=== PATIENT | female | born 1995 | race Caucasian/White ===

== ENCOUNTER 2019-07-14 08:57 | Inpatient (IN) ==
[2019-07-14] MEDS ORDERED: ANCEF VIAL 1 GRAM IVP ONE (09:29)
[2019-07-14] MEDS ORDERED: LR 1000 ML IV 1,000 ML IV ONE ×3 (09:31→11:13)
[2019-07-14] MEDS ORDERED: ANCEF 1 GRAM IV PREMIX* 2 G/100 ML BAG IV ONE (09:32)
[2019-07-14 09:59] LABS: BASOPHILS % (AUTO) 0.3 % (0.2-1.0); EOSINOPHILS % (AUTO) 0.5 % (0.9-2.9); HEMATOCRIT 35.7 % (36.0-47.0); HEMOGLOBIN 12.8 g/dL (12.0-16.0); LYMPHOCYTES # (AUTO) 1.8 X10^3/uL (1.3-2.9); LYMPHOCYTES % (AUTO) 19.1 % (21.0-51.0); MEAN CORPUSCULAR HEMOGLOBIN 32.3 pg (27.0-34.0); MEAN CORPUSCULAR HGB CONC 35.7 g/dL (33.0-35.0); MEAN CORPUSCULAR VOLUME 90.4 fL (80.0-100.0); MEAN PLATELET VOLUME 8.2 fL (7.4-11.0); MONOCYTES # (AUTO) 0.8 x10^3/uL (0.3-0.8); NEUTROPHILS # (AUTO) 6.8 x10^3/uL (2.2-4.8); NEUTROPHILS % (AUTO) 72.1 % (42.0-75.0); PLATELET COUNT 221 X10^3/uL (150.0-450.0); RED BLOOD COUNT 3.95 X10^6/uL (3.5-5.4); RED CELL DISTRIBUTION WIDTH 13.8 % (11.6-16.5); WHITE BLOOD COUNT 9.4 X10^3/uL (3.6-10.0)
[2019-07-14 10:10] LABS: ALANINE AMINOTRANSFERASE 15 Units/L (12-78); ALBUMIN 2.9 g/dL (3.4-5.0); ALKALINE PHOSPHATASE 185 Units/L (46-116); ASPARTATE AMINO TRANSFERASE 11 Units/L (15-37); BLOOD UREA NITROGEN 5 mg/dL (7-18); CALCIUM 8.3 mg/dL (8.5-10.1); CARBON DIOXIDE 24.8 mmol/L (21-32); CHLORIDE 104 mmol/L (98-107); COR CA(FOR HYPOALB) 9.2 mg/dL (8.5-10.1); CREATININE 0.49 mg/dL (0.55-1.02); SODIUM 138 mmol/L (136-145); eGFR NON BLACK RACES > 60 (>60)
[2019-07-14] MEDS ORDERED: D5 1/2 NS 1L W PITOCIN 20 UNITS/L 20 UNITS/1,000 ML BAG IV ONE (10:24)
[2019-07-14] MEDS ORDERED: XYLOCAINE 1 % (PLAIN) ONE (10:24)
[2019-07-14] MEDS ORDERED: DILAUDID INJ ONE (10:24)
[2019-07-14] MEDS ORDERED: MARCAINE SPINAL ONE (10:26)
[2019-07-14 11:29] LABS: BILIRUBIN,URINE NEGATIVE (NEGATIVE); BLOOD/HEMOGLOBIN,URINE NEGATIVE (NEGATIVE); GLUCOSE, URINE NEGATIVE (NEGATIVE); KETONES,URINE 2+ (NEGATIVE); LEUKOCYTE ESTERASE ,URINE NEGATIVE (NEGATIVE); NITRITES,URINE NEGATIVE (NEGATIVE); PROTEIN,URINE 2+ (NEGATIVE); UROBILINOGEN,URINE 1+ (NORMAL)
[2019-07-14 11:52] LABS: APPEARANCE,URINE SLIGHTLY HAZY (CLEAR); COLOR,URINE DARK YELLOW (YELLOW)
[2019-07-14 11:53] LABS: BACTERIA,URINE TRACE /HPF (NEGATIVE); HYALINE CASTS, URINE FEW /LPF (NEGATIVE); RBC,URINE 0-2 /HPF (0-3); SQUAMOUS EPITHELIAL CELL,UR MANY /HPF (NEGATIVE)
[2019-07-14] MEDS ORDERED: PHENERGAN INJ 25 MG IM PRN (12:03)
[2019-07-14] MEDS ORDERED: ZOFRAN INJ 4 MG VIAL IVP PRN (12:03)
[2019-07-14] MEDS ORDERED: BENADRYL INJ 50 MG VIAL IVP PRN (12:03)
[2019-07-14] MEDS ORDERED: REGLAN INJ 10 MG VIAL IVP PRN (12:03)
[2019-07-14] MEDS ORDERED: PITOCIN ONE (15:04)
[2019-07-14] MEDS ORDERED: ZOFRAN INJ 4 MG VIAL ONE (15:04)
[2019-07-14] MEDS ORDERED: EPHEDRINE SULFATE INJ ONE (15:04)
[2019-07-14] MEDS: TORADOL 30 MG VIAL IVP SCH (15:45)
[2019-07-14] MEDS ORDERED: HYPERRHO S/D (or RHOGAM) IM ONE (15:47)
[2019-07-14] MEDS ORDERED: NS 1000 ML 1,000 ML ONE (17:40)
[2019-07-15] MEDS: TORADOL 30 MG VIAL IVP SCH ×2 (00:55→02:19)
[2019-07-15 06:54] LABS: HEMATOCRIT 29.3 % (36.0-47.0); HEMOGLOBIN 10.5 g/dL (12.0-16.0)
--- NOTE | 2019-07-15 08:32 | NOTE.PROBC ---
Progress Note OB-C/S Subjective Data Subjective: No complaints, decreased lochia. Tolerating regular diet. No N/V. Ambulating well. Campos draining well. Pain under good control with Toradol. Objective Data Result Diagrams: 07/15/19 05:21 07/14/19 09:45 Objective Data: CV= RRR no MRG Lungs=CTA Bilaterally Abd=(+) BS, soft, ND, appropriately tender near incision. Bandage removed. Incision clean/dry/intact, no erythema, no bleeding, no discharge. Dermabond/Stitches intact. Fundus firm/NT/ at -1 cm below umbilicus. Ext= No edema, NT, No Cords. Graduated Compression Stockings/Sequential Compression Devices Bilaterally. Assessment Assessment: routine postop Plan Plan: standard postop care and likely go home tomorrow.
[2019-07-15] MEDS ORDERED: TORADOL 30 MG VIAL IVP PRN (12:13)
[2019-07-15] MEDS ORDERED: TORADOL 30 MG VIAL IM PRN (12:13)
--- NOTE | 2019-07-16 08:54 | NOTE.PROBC ---
Progress Note OB-C/S Subjective Data Subjective: No complaints, decreased lochia. Tolerating {regular diet. No N/V. Ambulating well. Campos draining well. Pain under good control with { toradol}. Objective Data Result Diagrams: 07/15/19 05:21 07/14/19 09:45 Objective Data: CV= RRR no MRG Lungs=CTA Bilaterally Abd=(+) BS, soft, ND, appropriately tender near incision. Bandage removed. Incision clean/dry/intact, no erythema, no bleeding, no discharge. Dermabond/Stitches intact. Fundus firm/NT/ at { -2} cm below umbilicus. Ext= No edema, NT, No Cords. Graduated Compression Stockings/Sequential Compression Devices Bilaterally. Assessment Assessment: stable postop Plan Plan: d/c home
[2019-07-16 11:11] VITALS: BP 108/65
== END 2019-07-16 11:15 | disposition home or self-care (01) | DRG 787 ==
LOC: LD 08:57 → MED/SURG 12:50
PROVIDERS: ADMIT Obstetrics & Gynecology; ATTEND Obstetrics & Gynecology
DX: O40.3XX0 Polyhydramnios, third trimester, not applicable or unspecified; Z3A.39 39 weeks gestation of pregnancy; O36.0930 Maternal care for other rhesus isoimmunization, third trimester, not applicable or unspecified; Z37.0 Single live birth; O34.211 Maternal care for low transverse scar from previous cesarean delivery; N85.8 Other specified noninflammatory disorders of uterus
CPT/HCPCS: 36415; 80053; 81001; 85014; 85018; 85025; 85461; 86592; 86850; 86900; 86901; A4222; J0690; J1170; J1885; J2405; J2590; J2790; J3490; J7120

== ENCOUNTER 2023-04-15 06:05 | Inpatient (IN) ==
[2023-04-15] MEDS ORDERED: NS 100 ML IV 100 ML ONE (06:27)
[2023-04-15] MEDS ORDERED: LR 1,000 ML IV 1,000 ML IV ONE (06:27)
[2023-04-15] MEDS ORDERED: ANCEF VIAL 1 GRAM ONE (06:27)
[2023-04-15] MEDS ORDERED: ANCEF VIAL 1 GRAM IVP ONE (06:29)
[2023-04-15] MEDS ORDERED: D5 1/2 NS 1,000 mL + PITOCIN 20 UNITS/L IV 20 UNITS/1,000 ML BAG IV ONE (06:33)
[2023-04-15] MEDS ORDERED: VERSED ONE ×2 (07:17→08:46)
[2023-04-15] MEDS ORDERED: DILAUDID INJ ONE (07:17)
[2023-04-15] MEDS ORDERED: XYLOCAINE 2 % (PLAIN) ONE (07:19)
[2023-04-15] MEDS ORDERED: PITOCIN ONE (07:20)
[2023-04-15] MEDS ORDERED: EPHEDRINE SULFATE INJ ONE (07:36)
[2023-04-15] MEDS: D5 1/2 NS 1,000 ML 1,000 ML IV SCH ×2 (08:12→21:52)
[2023-04-15] MEDS ORDERED: ProvayBLUE 0.5% ONE (08:47)
[2023-04-15] MEDS ORDERED: DIPRIVAN VIAL 20 ML ONE (08:54)
[2023-04-15] MEDS ORDERED: FENTANYL VIAL INJ 100 mcg ONE (09:07)
[2023-04-15] MEDS ORDERED: BENADRYL INJ 50 MG VIAL IVP PRN ×2 (09:45→10:15)
[2023-04-15] MEDS ORDERED: REGLAN INJ 10 MG VIAL IVP PRN ×2 (09:45→10:15)
[2023-04-15] MEDS ORDERED: BARHEMSYS INJ IVP PRN (09:45)
[2023-04-15] MEDS ORDERED: ZOFRAN INJ 4 MG VIAL IVP PRN ×2 (09:45→10:15)
[2023-04-15] MEDS ORDERED: TORADOL 30 MG VIAL IVP PRN (10:15)
[2023-04-15] MEDS ORDERED: HYPERRHO S/D (or RHOGAM) IM PRN (10:15)
[2023-04-15] MEDS ORDERED: ADACEL or BOOSTRIX TDaP VACCINE IM ONE ×2 (10:15→16:09)
[2023-04-15] MEDS ORDERED: MYLICON TAB 80 MG CHEW PO PRN (10:15)
[2023-04-15] MEDS ORDERED: PERCOCET TAB 5/325 MG PO PRN (10:15)
[2023-04-15] MEDS ORDERED: D5 1/2 NS 1,000 ML 1,000 ML with PITOCIN 20 UNITS IV SCH ×2 (10:15)
[2023-04-15] MEDS ORDERED: NARCAN INJ IVP PRN (10:15)
[2023-04-15] MEDS ORDERED: NS IRRIGATION* 500 ML IR ONE (14:20)
[2023-04-16 04:55] LABS: HEMATOCRIT 27.4 % (36.0-47.0)
[2023-04-16 05:05] LABS: HEMOGLOBIN 9.4 g/dL (12.0-16.0)
[2023-04-16] MEDS ORDERED: PERCOCET TAB 5/325 MG PO PRN (07:20)
[2023-04-16] MEDS: PRENATAL PLUS PO SCH (08:10)
[2023-04-16] MEDS: COLACE CAP 100 MG PO SCH ×2 (08:10→21:12)
[2023-04-16] MEDS: MOTRIN TAB 800 MG PO PRN ×2 (08:11→15:37)
[2023-04-16] MEDS: D5 1/2 NS 1,000 ML 1,000 ML IV SCH ×3 (10:10→22:10)
[2023-04-16] MEDS: BACTROBAN TOPICAL OINT TOP SCH ×2 (14:06→21:12)
[2023-04-17] MEDS: MOTRIN TAB 800 MG PO PRN ×2 (01:29→12:14)
[2023-04-17] MEDS: BACTROBAN TOPICAL OINT TOP SCH (05:01)
[2023-04-17] MEDS: D5 1/2 NS 1,000 ML 1,000 ML IV SCH (05:32)
[2023-04-17] MEDS: COLACE CAP 100 MG PO SCH (09:20)
[2023-04-17] MEDS: PRENATAL PLUS PO SCH (09:21)
[2023-04-17 09:39] VITALS: BP 123/80; PULSE 96; TEMP 98.6; O2SAT 100
[2023-04-17 12:15] VITALS: RESP 16
== END 2023-04-17 14:10 | disposition home or self-care (01) | DRG 787 ==
LOC: LD 06:05 → MED/SURG 11:04
PROVIDERS: ADMIT Specialist; ATTEND Specialist
DX: O36.0930 Maternal care for other rhesus isoimmunization, third trimester, not applicable or unspecified; Z37.0 Single live birth; O34.211 Maternal care for low transverse scar from previous cesarean delivery; O32.1XX0 Maternal care for breech presentation, not applicable or unspecified; Z01.812 Encounter for preprocedural laboratory examination; N85.8 Other specified noninflammatory disorders of uterus; Z3A.39 39 weeks gestation of pregnancy; O40.3XX0 Polyhydramnios, third trimester, not applicable or unspecified